=== PATIENT | female | born 1945 | race Two or more races ===

== ENCOUNTER → 2017-06-12 10:18 | Outpatient (CLI) | payer OTHER ==
[~2017-06-12 10:18] MED LIST: ARTHROTEC1 UDTAB.E1; MONTELUKAST SOD10 MG; PEPCID40 MG; PROTONIX20 MG; ULTRAM50 MG; ZOFRAN4 MG PO
== END | disposition home or self-care (01) ==
LOC: LAB 10:18
DX: I10 Essential (primary) hypertension (principal); I73.89 Other specified peripheral vascular diseases; E78.2 Mixed hyperlipidemia; E11.21 Type 2 diabetes mellitus with diabetic nephropathy; E11.42 Type 2 diabetes mellitus with diabetic polyneuropathy; H25.9 Unspecified age-related cataract; K21.9 Gastro-esophageal reflux disease without esophagitis; R10.9 Unspecified abdominal pain; A09 Infectious gastroenteritis and colitis, unspecified; N18.2 Chronic kidney disease, stage 2 (mild); R80.9 Proteinuria, unspecified; N39.0 Urinary tract infection, site not specified; D72.829 Elevated white blood cell count, unspecified; F33.9 Major depressive disorder, recurrent, unspecified; M15.0 Primary generalized (osteo)arthritis; M54.2 Cervicalgia; M54.40 Lumbago with sciatica, unspecified side; M62.838 Other muscle spasm; R26.89 Other abnormalities of gait and mobility; R51 Headache; G47.33 Obstructive sleep apnea (adult) (pediatric); J98.4 Other disorders of lung; J06.9 Acute upper respiratory infection, unspecified; E53.9 Vitamin B deficiency, unspecified; E55.9 Vitamin D deficiency, unspecified; D51.8 Other vitamin B12 deficiency anemias; E66.01 Morbid (severe) obesity due to excess calories; Z68.42 Body mass index [BMI] 45.0-49.9, adult; Z83.3 Family history of diabetes mellitus; E03.8 Other specified hypothyroidism

== ENCOUNTER → 2017-07-18 09:27 | Outpatient (CLI) | payer OTHER | END | disposition home or self-care (01) | LOC: LAB 09:27 | DX: I10 Essential (primary) hypertension (principal); I73.89 Other specified peripheral vascular diseases; E78.2 Mixed hyperlipidemia; E11.21 Type 2 diabetes mellitus with diabetic nephropathy; E11.69 Type 2 diabetes mellitus with other specified complication; E11.42 Type 2 diabetes mellitus with diabetic polyneuropathy; E03.8 Other specified hypothyroidism; H25.89 Other age-related cataract; K21.9 Gastro-esophageal reflux disease without esophagitis; R10.9 Unspecified abdominal pain; A09 Infectious gastroenteritis and colitis, unspecified; N18.2 Chronic kidney disease, stage 2 (mild); R80.8 Other proteinuria; N39.0 Urinary tract infection, site not specified; D72.829 Elevated white blood cell count, unspecified; F33.9 Major depressive disorder, recurrent, unspecified; M15.0 Primary generalized (osteo)arthritis; M54.2 Cervicalgia; M54.40 Lumbago with sciatica, unspecified side; M62.838 Other muscle spasm; R26.89 Other abnormalities of gait and mobility; R51 Headache; G47.33 Obstructive sleep apnea (adult) (pediatric); J84.112 Idiopathic pulmonary fibrosis; E55.9 Vitamin D deficiency, unspecified; D51.8 Other vitamin B12 deficiency anemias; E66.01 Morbid (severe) obesity due to excess calories; Z68.42 Body mass index [BMI] 45.0-49.9, adult; Z83.3 Family history of diabetes mellitus; J11.1 Influenza due to unidentified influenza virus with other respiratory manifestations; R09.02 Hypoxemia ==

== ENCOUNTER 2017-07-18 10:01 | Outpatient (CLI) | payer OTHER | END 2017-07-18 10:12 | disposition home or self-care (01) | LOC: RAD 10:01 | DX: I10 Essential (primary) hypertension (principal); I73.89 Other specified peripheral vascular diseases; E78.2 Mixed hyperlipidemia; E11.21 Type 2 diabetes mellitus with diabetic nephropathy; E11.69 Type 2 diabetes mellitus with other specified complication; E11.42 Type 2 diabetes mellitus with diabetic polyneuropathy; E03.8 Other specified hypothyroidism; H25.9 Unspecified age-related cataract; K21.9 Gastro-esophageal reflux disease without esophagitis; R10.9 Unspecified abdominal pain; A09 Infectious gastroenteritis and colitis, unspecified; N18.2 Chronic kidney disease, stage 2 (mild); R80.9 Proteinuria, unspecified; N39.0 Urinary tract infection, site not specified; D72.829 Elevated white blood cell count, unspecified; F33.9 Major depressive disorder, recurrent, unspecified; M15.0 Primary generalized (osteo)arthritis; M54.2 Cervicalgia; M54.40 Lumbago with sciatica, unspecified side; M62.838 Other muscle spasm; R26.89 Other abnormalities of gait and mobility; R51 Headache; B02.23 Postherpetic polyneuropathy; G47.33 Obstructive sleep apnea (adult) (pediatric); J84.112 Idiopathic pulmonary fibrosis; E53.9 Vitamin B deficiency, unspecified; E55.9 Vitamin D deficiency, unspecified; D51.8 Other vitamin B12 deficiency anemias; E66.01 Morbid (severe) obesity due to excess calories; Z68.42 Body mass index [BMI] 45.0-49.9, adult; Z83.3 Family history of diabetes mellitus; R05 Cough ==

== ENCOUNTER 2017-09-24 08:36 | Outpatient (CLI) | payer OTHER | END 2017-09-24 09:22 | disposition home or self-care (01) | LOC: LAB 08:36 | DX: I10 Essential (primary) hypertension (principal); I73.89 Other specified peripheral vascular diseases; E78.2 Mixed hyperlipidemia; E11.21 Type 2 diabetes mellitus with diabetic nephropathy; E11.69 Type 2 diabetes mellitus with other specified complication; E11.42 Type 2 diabetes mellitus with diabetic polyneuropathy; E03.8 Other specified hypothyroidism; H25.9 Unspecified age-related cataract; K21.9 Gastro-esophageal reflux disease without esophagitis; R10.84 Generalized abdominal pain; A09 Infectious gastroenteritis and colitis, unspecified; N18.2 Chronic kidney disease, stage 2 (mild); R80.8 Other proteinuria; N39.0 Urinary tract infection, site not specified; D72.829 Elevated white blood cell count, unspecified; F33.9 Major depressive disorder, recurrent, unspecified; M15.0 Primary generalized (osteo)arthritis; M54.2 Cervicalgia; M54.40 Lumbago with sciatica, unspecified side; M62.838 Other muscle spasm; R26.89 Other abnormalities of gait and mobility; R51 Headache; G47.33 Obstructive sleep apnea (adult) (pediatric); J84.112 Idiopathic pulmonary fibrosis; E53.8 Deficiency of other specified B group vitamins; E55.9 Vitamin D deficiency, unspecified; D51.8 Other vitamin B12 deficiency anemias; E66.01 Morbid (severe) obesity due to excess calories; Z68.42 Body mass index [BMI] 45.0-49.9, adult; Z83.3 Family history of diabetes mellitus; D72.828 Other elevated white blood cell count ==

== ENCOUNTER 2017-10-23 08:29 | Outpatient (CLI) | payer OTHER | END 2017-10-23 15:59 | disposition home or self-care (01) | LOC: TOM 08:29 | DX: J84.112 Idiopathic pulmonary fibrosis (principal) ==

== ENCOUNTER 2017-10-31 08:19 | Outpatient (CLI) | payer OTHER | END 2017-10-31 08:43 | disposition home or self-care (01) | LOC: LAB 08:19 | DX: D64.89 Other specified anemias (principal); N39.0 Urinary tract infection, site not specified; R82.79 Other abnormal findings on microbiological examination of urine; R10.84 Generalized abdominal pain; E03.8 Other specified hypothyroidism; E78.4 Other hyperlipidemia; E55.9 Vitamin D deficiency, unspecified; R80.8 Other proteinuria; E11.9 Type 2 diabetes mellitus without complications; R73.09 Other abnormal glucose; E78.2 Mixed hyperlipidemia; I11.9 Hypertensive heart disease without heart failure; R73.02 Impaired glucose tolerance (oral); N18.2 Chronic kidney disease, stage 2 (mild); I10 Essential (primary) hypertension; E11.21 Type 2 diabetes mellitus with diabetic nephropathy; I73.89 Other specified peripheral vascular diseases; E11.69 Type 2 diabetes mellitus with other specified complication; E11.42 Type 2 diabetes mellitus with diabetic polyneuropathy; E11.22 Type 2 diabetes mellitus with diabetic chronic kidney disease; H25.9 Unspecified age-related cataract; K21.9 Gastro-esophageal reflux disease without esophagitis; A09 Infectious gastroenteritis and colitis, unspecified; M15.0 Primary generalized (osteo)arthritis; M54.2 Cervicalgia; M54.40 Lumbago with sciatica, unspecified side; M62.838 Other muscle spasm; R26.89 Other abnormalities of gait and mobility; R51 Headache; B02.23 Postherpetic polyneuropathy; G47.33 Obstructive sleep apnea (adult) (pediatric); J84.112 Idiopathic pulmonary fibrosis; D51.8 Other vitamin B12 deficiency anemias; E66.01 Morbid (severe) obesity due to excess calories; Z68.42 Body mass index [BMI] 45.0-49.9, adult; Z83.3 Family history of diabetes mellitus; D72.828 Other elevated white blood cell count; F33.8 Other recurrent depressive disorders; E53.8 Deficiency of other specified B group vitamins ==

== ENCOUNTER 2017-12-23 08:25 | Outpatient (CLI) | payer OTHER | END 2017-12-23 10:05 | disposition home or self-care (01) | LOC: NUCLEAR 08:25 | DX: I65.29 Occlusion and stenosis of unspecified carotid artery (principal); R42 Dizziness and giddiness ==

== ENCOUNTER 2017-12-23 09:15 | Outpatient (CLI) | payer OTHER | END 2017-12-23 10:57 | disposition home or self-care (01) | LOC: TOM 09:15 | DX: R42 Dizziness and giddiness (principal); R55 Syncope and collapse ==

== ENCOUNTER 2018-02-05 08:06 | Outpatient (CLI) | payer OTHER | END 2018-02-05 08:45 | disposition home or self-care (01) | LOC: LAB 08:06 | DX: I10 Essential (primary) hypertension (principal); I73.89 Other specified peripheral vascular diseases; E78.2 Mixed hyperlipidemia; E11.69 Type 2 diabetes mellitus with other specified complication; E11.42 Type 2 diabetes mellitus with diabetic polyneuropathy; E11.22 Type 2 diabetes mellitus with diabetic chronic kidney disease; E03.8 Other specified hypothyroidism; H25.9 Unspecified age-related cataract; K21.9 Gastro-esophageal reflux disease without esophagitis; R10.84 Generalized abdominal pain; A09 Infectious gastroenteritis and colitis, unspecified; N18.2 Chronic kidney disease, stage 2 (mild); R80.8 Other proteinuria; N39.0 Urinary tract infection, site not specified; D72.828 Other elevated white blood cell count; F33.8 Other recurrent depressive disorders; M54.2 Cervicalgia; M54.40 Lumbago with sciatica, unspecified side; M62.838 Other muscle spasm; R26.89 Other abnormalities of gait and mobility; R51 Headache; B02.23 Postherpetic polyneuropathy; G47.33 Obstructive sleep apnea (adult) (pediatric); J84.112 Idiopathic pulmonary fibrosis; E53.9 Vitamin B deficiency, unspecified; E55.9 Vitamin D deficiency, unspecified; D51.8 Other vitamin B12 deficiency anemias; E66.01 Morbid (severe) obesity due to excess calories; Z68.42 Body mass index [BMI] 45.0-49.9, adult; Z83.3 Family history of diabetes mellitus; R82.79 Other abnormal findings on microbiological examination of urine ==

== ENCOUNTER 2018-03-19 08:47 | Outpatient (CLI) | payer OTHER ==
[~2018-03-19 08:47] MED LIST changes: +NABUMETONE750 MG PO
== END 2018-03-19 09:08 | disposition home or self-care (01) ==
LOC: LAB 08:47
DX: I11.9 Hypertensive heart disease without heart failure (principal); E78.2 Mixed hyperlipidemia; N18.2 Chronic kidney disease, stage 2 (mild); E11.21 Type 2 diabetes mellitus with diabetic nephropathy

== ENCOUNTER 2018-04-02 08:55 | Outpatient (CLI) | payer OTHER | END 2018-04-02 09:03 | disposition home or self-care (01) | LOC: NUCLEAR 08:55 | DX: I87.2 Venous insufficiency (chronic) (peripheral) (principal) ==

== ENCOUNTER 2018-04-07 08:59 | Outpatient (CLI) | payer OTHER | END 2018-04-07 09:21 | disposition home or self-care (01) | LOC: LAB 08:59 | DX: M45.0 Ankylosing spondylitis of multiple sites in spine (principal); M05.9 Rheumatoid arthritis with rheumatoid factor, unspecified; L93.2 Other local lupus erythematosus; M15.8 Other polyosteoarthritis; M35.00 Sjogren syndrome, unspecified ==

== ENCOUNTER 2018-05-06 08:11 | Outpatient (CLI) | payer OTHER | END 2018-05-06 08:31 | disposition home or self-care (01) | LOC: RAD 08:11 | DX: I13.10 Hypertensive heart and chronic kidney disease without heart failure, with stage 1 through stage 4 chronic kidney disease, or unspecified chronic kidney disease (principal); I87.2 Venous insufficiency (chronic) (peripheral); E78.2 Mixed hyperlipidemia; E11.42 Type 2 diabetes mellitus with diabetic polyneuropathy; E11.22 Type 2 diabetes mellitus with diabetic chronic kidney disease; E11.51 Type 2 diabetes mellitus with diabetic peripheral angiopathy without gangrene; E03.8 Other specified hypothyroidism; H25.89 Other age-related cataract; K21.9 Gastro-esophageal reflux disease without esophagitis; R10.84 Generalized abdominal pain; A09 Infectious gastroenteritis and colitis, unspecified; N18.2 Chronic kidney disease, stage 2 (mild); R80.8 Other proteinuria; N39.0 Urinary tract infection, site not specified; D72.829 Elevated white blood cell count, unspecified; F33.9 Major depressive disorder, recurrent, unspecified; M15.0 Primary generalized (osteo)arthritis; M54.2 Cervicalgia; M54.40 Lumbago with sciatica, unspecified side; M62.838 Other muscle spasm; R26.89 Other abnormalities of gait and mobility; R51 Headache; B02.23 Postherpetic polyneuropathy; G47.33 Obstructive sleep apnea (adult) (pediatric); J84.112 Idiopathic pulmonary fibrosis; R09.02 Hypoxemia; E55.9 Vitamin D deficiency, unspecified; D51.8 Other vitamin B12 deficiency anemias; E66.01 Morbid (severe) obesity due to excess calories; Z68.42 Body mass index [BMI] 45.0-49.9, adult; Z83.3 Family history of diabetes mellitus; R05 Cough ==

== ENCOUNTER 2018-05-06 09:39 | Outpatient (CLI) | payer OTHER | END 2018-05-06 10:00 | disposition home or self-care (01) | LOC: LAB 09:39 | DX: I13.10 Hypertensive heart and chronic kidney disease without heart failure, with stage 1 through stage 4 chronic kidney disease, or unspecified chronic kidney disease (principal); I87.2 Venous insufficiency (chronic) (peripheral); E78.2 Mixed hyperlipidemia; E11.42 Type 2 diabetes mellitus with diabetic polyneuropathy; E11.22 Type 2 diabetes mellitus with diabetic chronic kidney disease; E11.51 Type 2 diabetes mellitus with diabetic peripheral angiopathy without gangrene; E03.8 Other specified hypothyroidism; H25.89 Other age-related cataract; K21.9 Gastro-esophageal reflux disease without esophagitis; R10.84 Generalized abdominal pain; A09 Infectious gastroenteritis and colitis, unspecified; N18.2 Chronic kidney disease, stage 2 (mild); R80.8 Other proteinuria; N39.0 Urinary tract infection, site not specified; D72.828 Other elevated white blood cell count; F33.8 Other recurrent depressive disorders; M15.0 Primary generalized (osteo)arthritis; M54.2 Cervicalgia; M54.40 Lumbago with sciatica, unspecified side; M62.838 Other muscle spasm; R26.89 Other abnormalities of gait and mobility; R51 Headache; B02.23 Postherpetic polyneuropathy; G47.33 Obstructive sleep apnea (adult) (pediatric); J84.112 Idiopathic pulmonary fibrosis; R09.02 Hypoxemia; E55.9 Vitamin D deficiency, unspecified; D51.8 Other vitamin B12 deficiency anemias; E66.01 Morbid (severe) obesity due to excess calories; Z68.42 Body mass index [BMI] 45.0-49.9, adult; Z83.3 Family history of diabetes mellitus ==

== ENCOUNTER 2018-06-09 11:20 | Inpatient (IN) | payer OTHER ==
[~2018-06-09] VITALS: Ht 167.6 cm; Wt 102.5 kg
--- NOTE | 2018-06-09 11:58 | NUR ---
SE RECIBE PTE ALERTA Y ORIENTADA X3 EN AMBULANCIA ACOMPANA[place] DE FAMILIAR. PTE REFIERE DOLOR ABDOMINAL Y MITOS CONTINUOS. AL MEDIR S/V PTE PRESENTA HR DE [address] DICKINSON QUIEN INICA PTE SE UBIQUE EN UNIDAD DE DOLOR DE PECHO. SE LE REALIZA EKG Y SE PRESENTA AL DR DICKINSON.
--- NOTE | 2018-06-09 12:43 | NUR ---
SE RECIBE PTE ALERTA, ORIENTADA POR SHIRA. ACOMPANADA POR FAMILIAR POR ORDEN DEL SE UBICA EN LA UNIDAD SE CHEST PAIN CONECTADA A MONITOR CARDIACO CON PULSO EN 134. SE MANTIENE EN OBSERVACION Y PENDIENTE A SER EVALUADA POR EL MEDICO.
--- NOTE | 2018-06-09 15:26 | NUR ---
SE RECIBE FEMINA ALERTA Y ORIENTADA POR SHIRA ESFERAS, EN JAMIL CON BARANDAS SEGURAS Y ELEVADAS. CANALIZADA CON AREA DE VENOPUNCION BALJEET DE EDEMA O ENROJECIMIENTO. RECIBIENDO 0.9% NSS @ 100 ML/HR. SE ÁNGELA S/V Y SE REPORTAN. SE MANTIENE EN OBSERVACION POR CAMBIOS.
--- NOTE | 2018-06-09 15:40 | NUR ---
SE AUMENTA VOLUMEN DE IVF'S A 250ML/HR POR MAXIMILIAN HORA PARA SARAH SI HAY CAMBIOS EN B/P. SE MANTIENE PTE EN OBSERVACION POR CAMBIOS EN ESTADO DE OLIVERIO.
--- NOTE | 2018-06-09 23:54 | NUR ---
SE RECIBE PTE FEMENINA DE 73 YRS EN LA UNIDADA DE CHEST PAIN CONCNETADA A MONITOR CARDIACO Y OXIMENTRIA . PTE SE OBSERVA CON IVF PATENTE Y BALJEET DE EDEMA. SE OBSERVA PTE CON FOLIE CATHETE CON UN OUPUT DE COLOR AMARILLO INTENSO PTE AL MOMENTO BALJEET DE DOLOR. SE LE STEVE S/V LA CUAL SE DOCUMENTA. SE MANTIENE EN ESPERA DE ADMICION DE LA PTE POR ORDENES NUEVAS.SE OBSERVA POR CAMBIOS
== END 2018-06-25 16:26 | disposition home or self-care (01) | DRG 444 ==
LOC: ER 11:20 → SURG 23:12 → SEC-K 23:12 → SURG 06-10 14:44
PROVIDERS: ADMIT Internal Medicine
PROC: 4A033R1 Measurement of Arterial Saturation, Peripheral, Percutaneous Approach (ICD-10-PCS; 2018-06-09)
PROC: 4A12X4Z Monitoring of Cardiac Electrical Activity, External Approach (ICD-10-PCS; 2018-06-09)
PROC: BW21Y0Z Computerized Tomography (CT Scan) of Abdomen and Pelvis using Other Contrast, Unenhanced and Enhanced (ICD-10-PCS; 2018-06-09)
PROC: CF2YYZZ Tomographic (Tomo) Nuclear Medicine Imaging of Hepatobiliary System and Pancreas using Other Radionuclide (ICD-10-PCS; 2018-06-09)
PROC: 0T9B70Z Drainage of Bladder with Drainage Device, Via Natural or Artificial Opening (ICD-10-PCS; 2018-06-09)
PROC: 0DB98ZX Excision of Duodenum, Via Natural or Artificial Opening Endoscopic, Diagnostic (ICD-10-PCS; 2018-06-12)
PROC: 0DB68ZX Excision of Stomach, Via Natural or Artificial Opening Endoscopic, Diagnostic (ICD-10-PCS; 2018-06-12)
PROC: 0DJD8ZZ Inspection of Lower Intestinal Tract, Via Natural or Artificial Opening Endoscopic (ICD-10-PCS; principal; 2018-06-13)
PROC: 3E0F7GC Introduction of Other Therapeutic Substance into Respiratory Tract, Via Natural or Artificial Opening (ICD-10-PCS; 2018-06-13)
PROC: B246ZZZ Ultrasonography of Right and Left Heart (ICD-10-PCS; 2018-06-14)
PROC: 02HV33Z Insertion of Infusion Device into Superior Vena Cava, Percutaneous Approach (ICD-10-PCS; 2018-06-16)
PROC: BW24Y0Z Computerized Tomography (CT Scan) of Chest and Abdomen using Other Contrast, Unenhanced and Enhanced (ICD-10-PCS; 2018-06-16)
DX: K81.1 Chronic cholecystitis (principal); J80 Acute respiratory distress syndrome; K55.1 Chronic vascular disorders of intestine; F33.9 Major depressive disorder, recurrent, unspecified; A09 Infectious gastroenteritis and colitis, unspecified; C74.10 Malignant neoplasm of medulla of unspecified adrenal gland; J44.1 Chronic obstructive pulmonary disease with (acute) exacerbation; E86.0 Dehydration; I95.89 Other hypotension; M15.4 Erosive (osteo)arthritis; G47.33 Obstructive sleep apnea (adult) (pediatric); R00.0 Tachycardia, unspecified; E66.01 Morbid (severe) obesity due to excess calories; K21.9 Gastro-esophageal reflux disease without esophagitis; I10 Essential (primary) hypertension; K59.8 Other specified functional intestinal disorders; E11.9 Type 2 diabetes mellitus without complications; Z79.84 Long term (current) use of oral hypoglycemic drugs; J84.10 Pulmonary fibrosis, unspecified; C76.8 Malignant neoplasm of other specified ill-defined sites; M62.59 Muscle wasting and atrophy, not elsewhere classified, multiple sites; J11.1 Influenza due to unidentified influenza virus with other respiratory manifestations; Z99.81 Dependence on supplemental oxygen; E34.8 Other specified endocrine disorders; E87.8 Other disorders of electrolyte and fluid balance, not elsewhere classified

== ENCOUNTER 2019-02-04 08:31 | Emergency (ER) | payer OTHER ==
[~2019-02-04] VITALS: Ht 157.5 cm; Wt 86.2 kg
[2019-02-04] MEDS ORDERED: CIPRO500 MG PO (14:34)
[2019-02-04] MEDS ORDERED: ZOFRAN4 MG PO (14:34)
[2019-02-04] MEDS ORDERED: PROTONIX40 MG PO (14:34)
== END 2019-02-04 15:23 | disposition home or self-care (01) ==
LOC: ER 08:31
DX: R53.1 Weakness (principal); R11.2 Nausea with vomiting, unspecified; T46.0X5A Adverse effect of cardiac-stimulant glycosides and drugs of similar action, initial encounter; Y92.89 Other specified places as the place of occurrence of the external cause

== ENCOUNTER 2019-03-10 19:20 | Inpatient (IN) | payer OTHER ==
[~2019-03-10] VITALS: Ht 154.9 cm; Wt 91.6 kg
[~2019-03-10 19:20] MED LIST changes: +CIPRO500 MG PO; +PROTONIX40 MG PO
[2019-03-16] MEDS ORDERED: METOCLOPRAMIDE10 MG PO (14:38)
[2019-03-16] MEDS ORDERED: DILTIAZEM HCL30 MG PO (14:38)
== END 2019-03-19 18:35 | disposition home or self-care (01) | DRG 392 ==
LOC: ER 19:20 → SEC-K 03-11 09:49 → MEDJ 03-11 09:49
PROVIDERS: ADMIT Internal Medicine
PROC: 30233N1 Transfusion of Nonautologous Red Blood Cells into Peripheral Vein, Percutaneous Approach (ICD-10-PCS; principal; 2019-03-16)
DX: K21.0 Gastro-esophageal reflux disease with esophagitis (principal); R65.10 Systemic inflammatory response syndrome (SIRS) of non-infectious origin without acute organ dysfunction; K44.9 Diaphragmatic hernia without obstruction or gangrene; I73.89 Other specified peripheral vascular diseases; J84.10 Pulmonary fibrosis, unspecified; R63.0 Anorexia; E86.0 Dehydration; E87.8 Other disorders of electrolyte and fluid balance, not elsewhere classified; D50.8 Other iron deficiency anemias; E66.09 Other obesity due to excess calories; K31.84 Gastroparesis

== ENCOUNTER 2019-05-19 09:42 | Outpatient (CLI) | payer OTHER ==
[~2019-05-19 09:42] MED LIST changes: +DILTIAZEM HCL30 MG PO; +METOCLOPRAMIDE10 MG PO
== END 2019-05-19 09:52 | disposition home or self-care (01) ==
LOC: NUCLEAR 09:42
DX: I13.10 Hypertensive heart and chronic kidney disease without heart failure, with stage 1 through stage 4 chronic kidney disease, or unspecified chronic kidney disease (principal); I48.0 Paroxysmal atrial fibrillation; I87.2 Venous insufficiency (chronic) (peripheral); I13.0 Hypertensive heart and chronic kidney disease with heart failure and stage 1 through stage 4 chronic kidney disease, or unspecified chronic kidney disease; E78.2 Mixed hyperlipidemia; E11.69 Type 2 diabetes mellitus with other specified complication; E11.42 Type 2 diabetes mellitus with diabetic polyneuropathy; E11.22 Type 2 diabetes mellitus with diabetic chronic kidney disease; E11.51 Type 2 diabetes mellitus with diabetic peripheral angiopathy without gangrene; E03.8 Other specified hypothyroidism; H25.89 Other age-related cataract; K21.9 Gastro-esophageal reflux disease without esophagitis; A09 Infectious gastroenteritis and colitis, unspecified; R10.9 Unspecified abdominal pain; N18.2 Chronic kidney disease, stage 2 (mild); R80.8 Other proteinuria; N39.0 Urinary tract infection, site not specified; D72.828 Other elevated white blood cell count; F33.8 Other recurrent depressive disorders; M15.0 Primary generalized (osteo)arthritis; M54.2 Cervicalgia; M54.40 Lumbago with sciatica, unspecified side; M62.838 Other muscle spasm; R26.89 Other abnormalities of gait and mobility; R51 Headache; B02.23 Postherpetic polyneuropathy; G47.33 Obstructive sleep apnea (adult) (pediatric); J84.112 Idiopathic pulmonary fibrosis; R09.02 Hypoxemia; D51.8 Other vitamin B12 deficiency anemias; E66.01 Morbid (severe) obesity due to excess calories; Z68.39 Body mass index [BMI] 39.0-39.9, adult; I70.213 Atherosclerosis of native arteries of extremities with intermittent claudication, bilateral legs; I83.893 Varicose veins of bilateral lower extremities with other complications

== ENCOUNTER 2019-05-20 14:54 | Outpatient (CLI) | payer OTHER | END 2019-05-20 15:12 | disposition home or self-care (01) | LOC: NUCLEAR 14:54 | DX: I87.2 Venous insufficiency (chronic) (peripheral) (principal); I83.893 Varicose veins of bilateral lower extremities with other complications; I70.213 Atherosclerosis of native arteries of extremities with intermittent claudication, bilateral legs; Z68.39 Body mass index [BMI] 39.0-39.9, adult; E66.01 Morbid (severe) obesity due to excess calories; D51.8 Other vitamin B12 deficiency anemias; E55.9 Vitamin D deficiency, unspecified; R09.02 Hypoxemia; J84.112 Idiopathic pulmonary fibrosis; G47.33 Obstructive sleep apnea (adult) (pediatric); B02.23 Postherpetic polyneuropathy; R51 Headache; R26.89 Other abnormalities of gait and mobility; M62.838 Other muscle spasm; M54.40 Lumbago with sciatica, unspecified side; M54.2 Cervicalgia; M15.0 Primary generalized (osteo)arthritis; F33.8 Other recurrent depressive disorders; D72.828 Other elevated white blood cell count; N39.0 Urinary tract infection, site not specified; R80.8 Other proteinuria; N18.2 Chronic kidney disease, stage 2 (mild); A09 Infectious gastroenteritis and colitis, unspecified; R10.9 Unspecified abdominal pain; K21.9 Gastro-esophageal reflux disease without esophagitis; H25.89 Other age-related cataract; E03.8 Other specified hypothyroidism; E11.51 Type 2 diabetes mellitus with diabetic peripheral angiopathy without gangrene; E11.22 Type 2 diabetes mellitus with diabetic chronic kidney disease; E11.42 Type 2 diabetes mellitus with diabetic polyneuropathy; E11.69 Type 2 diabetes mellitus with other specified complication; E78.2 Mixed hyperlipidemia; I13.0 Hypertensive heart and chronic kidney disease with heart failure and stage 1 through stage 4 chronic kidney disease, or unspecified chronic kidney disease; I48.0 Paroxysmal atrial fibrillation; I13.10 Hypertensive heart and chronic kidney disease without heart failure, with stage 1 through stage 4 chronic kidney disease, or unspecified chronic kidney disease ==

== ENCOUNTER 2019-12-03 09:12 | Inpatient (IN) | payer OTHER ==
[~2019-12-03] VITALS: Ht 165.1 cm; Wt 117.9 kg
[2019-12-03] MEDS ORDERED: XARELTO20 MG (09:19)
[2019-12-12] MEDS ORDERED: PROTONIX40 MG PO (11:10)
[2019-12-12] MEDS ORDERED: CARAFATE1 GM/10 ML PO (11:10)
[2019-12-12] MEDS ORDERED: XARELTO20 MG PO (11:10)
[2019-12-12] MEDS ORDERED: DILTIAZEM HCL30 MG PO (11:10)
[2019-12-12] MEDS ORDERED: INTESTINEX680 M1 PO (11:10)
== END 2019-12-12 12:16 | disposition home or self-care (01) | DRG 392 ==
LOC: ER 09:12 → MEDI 22:26 → SURG 12-04 19:16
PROVIDERS: ADMIT Internal Medicine; ATTEND Internal Medicine
PROC: BW21ZZZ Computerized Tomography (CT Scan) of Abdomen and Pelvis (ICD-10-PCS; 2019-12-03)
PROC: BB24ZZZ Computerized Tomography (CT Scan) of Bilateral Lungs (ICD-10-PCS; 2019-12-03)
PROC: 0DJD8ZZ Inspection of Lower Intestinal Tract, Via Natural or Artificial Opening Endoscopic (ICD-10-PCS; principal; 2019-12-11)
DX: K31.84 Gastroparesis (principal); K52.89 Other specified noninfective gastroenteritis and colitis; K44.9 Diaphragmatic hernia without obstruction or gangrene

== ENCOUNTER 2020-03-29 11:48 | Inpatient (IN) | payer OTHER ==
[~2020-03-29] VITALS: Ht 154.9 cm; Wt 81.6 kg
[~2020-03-29 11:48] MED LIST changes: +CARAFATE1 GM/10 ML PO; +INTESTINEX680 M1 PO; +XARELTO20 MG; +XARELTO20 MG PO
[2020-03-30] MEDS ORDERED: ESOMEPRAZOLE MA40 MG (08:15)
[2020-04-12] MEDS ORDERED: XARELTO15 MG PO (11:50)
[2020-04-12] MEDS ORDERED: ZOFRAN8 MG PO (11:50)
[2020-04-12] MEDS ORDERED: PYRIDOXINE HCL100 MG PO (11:50)
[2020-04-12] MEDS ORDERED: CARAFATE1 GM/10 ML PO (11:50)
[2020-04-12] MEDS ORDERED: DILTIAZEM HCL30 MG PO (11:50)
[2020-04-12] MEDS ORDERED: INTESTINEX680 M1 PO (11:50)
[2020-04-12] MEDS ORDERED: ABANEU-SL TABL1 EACH SL (11:50)
[2020-04-12] MEDS ORDERED: PROTONIX40 MG PO (11:50)
[2020-04-12] MEDS ORDERED: PROTEINEX-18 LI30 ML PO (11:50)
[2020-04-12] MEDS ORDERED: INTEGRA F CAPS1 EACH PO (11:53)
== END 2020-04-12 18:33 | disposition home or self-care (01) | DRG 327 ==
LOC: ER 11:48 → SURH 18:25 → SURG 18:25 → SEC-K 18:25 → SURG 19:29 → SURH 03-30 20:55 → MEDI 03-30 20:55 → SURG 04-01 23:03
PROVIDERS: Surgery; ADMIT Internal Medicine Geriatric Medicine; ATTEND Internal Medicine Geriatric Medicine
PROC: BW21ZZZ Computerized Tomography (CT Scan) of Abdomen and Pelvis (ICD-10-PCS; 2020-03-29)
PROC: B246ZZZ Ultrasonography of Right and Left Heart (ICD-10-PCS; 2020-03-29)
PROC: 4A033R1 Measurement of Arterial Saturation, Peripheral, Percutaneous Approach (ICD-10-PCS; 2020-03-29)
PROC: 4A12X4Z Monitoring of Cardiac Electrical Activity, External Approach (ICD-10-PCS; 2020-03-30)
PROC: 02HV33Z Insertion of Infusion Device into Superior Vena Cava, Percutaneous Approach (ICD-10-PCS; 2020-03-30)
PROC: BW21ZZZ Computerized Tomography (CT Scan) of Abdomen and Pelvis (ICD-10-PCS; 2020-03-31)
PROC: 30233P1 Transfusion of Nonautologous Frozen Red Cells into Peripheral Vein, Percutaneous Approach (ICD-10-PCS; 2020-04-05)
PROC: 0DV44ZZ Restriction of Esophagogastric Junction, Percutaneous Endoscopic Approach (ICD-10-PCS; 2020-04-06)
PROC: 0DB48ZX Excision of Esophagogastric Junction, Via Natural or Artificial Opening Endoscopic, Diagnostic (ICD-10-PCS; 2020-04-06)
PROC: 0BUT4JZ Supplement Diaphragm with Synthetic Substitute, Percutaneous Endoscopic Approach (ICD-10-PCS; principal; 2020-04-06 09:00)
PROC: 0WQF4ZZ Repair Abdominal Wall, Percutaneous Endoscopic Approach (ICD-10-PCS; 2020-04-06 09:00)
PROC: BD11YZZ Fluoroscopy of Esophagus using Other Contrast (ICD-10-PCS; 2020-04-07)
PROC: BW21ZZZ Computerized Tomography (CT Scan) of Abdomen and Pelvis (ICD-10-PCS; 2020-04-07)
DX: K42.0 Umbilical hernia with obstruction, without gangrene (principal); R65.10 Systemic inflammatory response syndrome (SIRS) of non-infectious origin without acute organ dysfunction; N17.8 Other acute kidney failure; K44.9 Diaphragmatic hernia without obstruction or gangrene; K21.9 Gastro-esophageal reflux disease without esophagitis; K31.84 Gastroparesis; K31.89 Other diseases of stomach and duodenum; E11.43 Type 2 diabetes mellitus with diabetic autonomic (poly)neuropathy; E55.9 Vitamin D deficiency, unspecified; E78.49 Other hyperlipidemia; E86.0 Dehydration; E66.8 Other obesity; D51.1 Vitamin B12 deficiency anemia due to selective vitamin B12 malabsorption with proteinuria; D50.0 Iron deficiency anemia secondary to blood loss (chronic); D51.0 Vitamin B12 deficiency anemia due to intrinsic factor deficiency; I10 Essential (primary) hypertension; I73.89 Other specified peripheral vascular diseases; I48.0 Paroxysmal atrial fibrillation; R13.19 Other dysphagia; R63.0 Anorexia; G47.33 Obstructive sleep apnea (adult) (pediatric); M06.8A Other specified rheumatoid arthritis, other specified site; J84.10 Pulmonary fibrosis, unspecified; Z20.828 Contact with and (suspected) exposure to other viral communicable diseases; Z79.01 Long term (current) use of anticoagulants

== ENCOUNTER 2020-11-03 07:53 | Outpatient (CLI) | payer OTHER ==
[~2020-11-03 07:53] MED LIST changes: +ABANEU-SL TABL1 EACH SL; +ESOMEPRAZOLE MA40 MG; +INTEGRA F CAPS1 EACH PO; +PROTEINEX-18 LI30 ML PO; +PYRIDOXINE HCL100 MG PO; +XARELTO15 MG PO; +ZOFRAN8 MG PO
== END 2020-11-03 07:55 | disposition home or self-care (01) ==
LOC: NUCLEAR 07:53
PROVIDERS: ATTEND Internal Medicine
DX: I48.0 Paroxysmal atrial fibrillation (principal)
CPT/HCPCS: 78815; A9552

== ENCOUNTER 2020-11-09 13:57 | Outpatient (CLI) | payer OTHER | END 2020-11-09 14:47 | disposition home or self-care (01) | LOC: OFIC 805 13:57 | PROVIDERS: ATTEND Otolaryngology Otology & Neurotology | DX: H90.3 Sensorineural hearing loss, bilateral (principal) ==

== ENCOUNTER 2020-12-06 09:56 | Emergency (ER) | payer OTHER ==
[~2020-12-06] VITALS: Ht 152.4 cm; Wt 56.7 kg
[2020-12-06] MEDS ORDERED: CIPRO500 MG PO (15:19)
[2020-12-06] MEDS ORDERED: PROTONIX40 MG PO (15:27)
== END 2020-12-06 18:47 | disposition home or self-care (01) ==
LOC: ER 09:56
DX: K92.1 Melena (principal)

== ENCOUNTER 2021-05-12 13:02 | Emergency (ER) | payer OTHER ==
[~2021-05-12] VITALS: Ht 152.4 cm; Wt 59.0 kg
[2021-05-12] MEDS ORDERED: NEXIUM5 MG (13:09)
[2021-05-12] MEDS ORDERED: LEVOTHYROXINE25 MCG (13:09)
[2021-05-12] MEDS ORDERED: FOLIC ACID0.4 MG (13:10)
== END 2021-05-12 16:54 | disposition home or self-care (01) ==
LOC: ER 13:02
DX: J44.9 Chronic obstructive pulmonary disease, unspecified (principal); R06.02 Shortness of breath; Z03.818 Encounter for observation for suspected exposure to other biological agents ruled out

== ENCOUNTER 2021-09-19 09:45 | Outpatient (CLI) | payer OTHER ==
[~2021-09-19 09:45] MED LIST changes: +FOLIC ACID0.4 MG; +LEVOTHYROXINE25 MCG; +NEXIUM5 MG
== END 2021-09-19 09:47 | disposition home or self-care (01) ==
LOC: NUCLEAR 09:45
PROVIDERS: ATTEND Internal Medicine
DX: M81.0 Age-related osteoporosis without current pathological fracture (principal); M54.2 Cervicalgia; M62.838 Other muscle spasm

== ENCOUNTER 2021-09-21 07:22 | Outpatient (CLI) | payer OTHER | END 2021-09-21 07:32 | disposition home or self-care (01) | LOC: TOM 07:22 | PROVIDERS: ATTEND Internal Medicine | DX: I48.0 Paroxysmal atrial fibrillation (principal); I87.2 Venous insufficiency (chronic) (peripheral); J84.112 Idiopathic pulmonary fibrosis; G47.33 Obstructive sleep apnea (adult) (pediatric) ==

== ENCOUNTER → 2021-09-21 08:26 | Outpatient (CLI) | payer OTHER | END | disposition home or self-care (01) | LOC: NUCLEAR 09-20 11:00 | PROVIDERS: ATTEND Internal Medicine | DX: I87.2 Venous insufficiency (chronic) (peripheral) (principal) ==

== ENCOUNTER 2021-09-22 07:58 | Outpatient (CLI) | payer OTHER | END 2021-09-22 08:09 | disposition home or self-care (01) | LOC: RX STUDY 07:58 | PROVIDERS: ATTEND Internal Medicine Gastroenterology | DX: R13.10 Dysphagia, unspecified (principal) ==

== ENCOUNTER 2021-12-22 18:10 | Inpatient (IN) | payer OTHER ==
[~2021-12-22] VITALS: Ht 157.5 cm; Wt 66.2 kg
--- NOTE | 2021-12-22 18:27 | NUR ---
SE RECIBE PTE ALERTA Y ORIENTADA X3 EN AMBULANCIA POR SOB. PTE SE OBSERVA CON DIFICULTAD RESPIRATORIA Y [place]AB[place]O EN ORACIONES CORTAS. SE ÁNGELA S/V A PTE, PTE SATURNADO 835 CON CN A 3LTS COLOCADA. PTE SE COLOCA EN UNIDAD DE CRITICO. SE REALIZA EKG A PTE Y SE COLOCA A MONITOR CARIDACO.
--- NOTE | 2021-12-22 18:31 | NUR ---
SE ÁNGELA MUESTRAS DE LABORATORIO A PTE , SE NOTYIICAN ABGS A PERSONAL DE TERAPIA RESPIRATORIA. SE COLOCA H/L A PTE EN BRAZO RT.
== END 2021-12-29 16:53 | disposition home or self-care (01) | DRG 177 ==
LOC: ER 18:10 → MEDJ 22:35 → OB/GYN 22:35 → MEDJ 23:43
PROVIDERS: ADMIT Internal Medicine; ATTEND Internal Medicine
PROC: 8E0ZXY6 Isolation (ICD-10-PCS; 2021-12-22)
PROC: XW033E5 Introduction of Remdesivir Anti-infective into Peripheral Vein, Percutaneous Approach, New Technology Group 5 (ICD-10-PCS; principal; 2021-12-23)
PROC: B24BZZZ Ultrasonography of Heart with Aorta (ICD-10-PCS; 2021-12-23)
PROC: BW24ZZZ Computerized Tomography (CT Scan) of Chest and Abdomen (ICD-10-PCS; 2021-12-23)
PROC: 4A12X4Z Monitoring of Cardiac Electrical Activity, External Approach (ICD-10-PCS; 2021-12-23)
DX: U07.1 COVID-19 (principal); J12.82 Pneumonia due to coronavirus disease 2019; R09.02 Hypoxemia; R06.02 Shortness of breath; J84.10 Pulmonary fibrosis, unspecified; G47.33 Obstructive sleep apnea (adult) (pediatric); R91.1 Solitary pulmonary nodule; E03.9 Hypothyroidism, unspecified; H91.90 Unspecified hearing loss, unspecified ear; Z74.01 Bed confinement status; I11.0 Hypertensive heart disease with heart failure; I50.9 Heart failure, unspecified